=== PATIENT | female | born 1985 | race Caucasian/White ===

== ENCOUNTER 2019-11-01 19:35 | Inpatient (IN) | payer BC ==
[2019-11-01] MEDS ORDERED: BUTORPHANOL TARTRATE 2 MG/ML VIAL IVPB PRN (20:43)
[2019-11-01] MEDS ORDERED: PROMETHAZINE HCL 25 MG/1 ML VIAL IVPUSH ONE (20:43)
[2019-11-01] MEDS ORDERED: ELECTROLYTE-148 SOLN 1,000 ML IV SCH (20:45)
--- NOTE | 2019-11-01 21:14 | HP ---
Past Medical History - Primary Care Physician PCP:: Liset Lazo - Admission Chief Complaint: Active labor. 39 weeks History of Present Illness: 34 yo EdC 10/2019 EGA 39 weeks admitted with labor no rom no bleeding History Source: Patient Limitations to Obtaining History: No Limitations - Past Medical History ...: 2 ...Para: 1 Additional Medical History: Rheumatoid arthirits - Past Surgical History Past Surgical History: Yes: None Hx Myomectomy: No Hx Transabdominal Cerclage: No - Smoking History Have you smoked in the past 12 months: No - Alcohol/Substance Use Hx Alcohol Use: No History of Substance Use: reports: None - Social History Usual Living Arrangement: Yes: With Spouse History of Recent Travel: No Home Medications - Allergies Allergies/Adverse Reactions: Allergies Allergy/AdvReac Type Severity Reaction Status Date / Time No Known Allergies Allergy Verified 11/01/19 22:52 - Home Medications Home Medications: Ambulatory Orders Etanercept [Enbrel] 50 mg SQ WEEKLY 11/01/19 Ibuprofen [Motrin -] 600 mg PO QID #28 tablet 11/02/19 Review of Systems - Review of Systems Constitutional: reports: No Symptoms Eyes: reports: No Symptoms HENT: reports: No Symptoms Neck: reports: No Symptoms Cardiovascular: reports: No Symptoms Respiratory: reports: No Symptoms Gastrointestinal: reports: Abdominal Pain Genitourinary: reports: No Symptoms Breasts: reports: No Symptoms Reported Musculoskeletal: reports: No Symptoms Integumentary: reports: No Symptoms Neurological: reports: No Symptoms Endocrine: reports: No Symptoms Hematology/Lymphatic: reports: No Symptoms Psychiatric: reports: No Symptoms Physical Exam - Maternity Constitutional: Yes: Well Nourished, No Distress Neck: Yes: WNL Cardiovascular: Yes: WNL Lungs: Clear to auscultation Breast(s): Yes: WNL - Abdominal Exam/OB Fundal Height: 39 Number of Fetuses: Single Presentation: Vertex Contractions: Yes Monitor Mode: External Heart Rate Location: RL Category: I - Vaginal Exam/OB Dilatation (cm): 4 Effacement (%): 100 Presentation: Vertex/Position - Physical Exam Extremities: Yes: WNL Edema: No Psychiatric: Yes: WNL, Alert, Oriented Problem List - Problems (1) Labor established Problems reviewed: Yes Code(s): TAI5953 - (2) 39 weeks gestation of Problems reviewed: Yes Code(s): Z3A.39 - 39 WEEKS GESTATION OF Assessment/Plan IUPat 39 week Active labor Cat 1 obesity Plan Admit Stadol
[2019-11-01] MEDS ORDERED: OXYTOCIN 20 UNITS in 0.9% NS 20 UNIT/1,000 ML INFUS.BAG IV ONE (21:41)
[2019-11-01 21:48] LABS: BASO % 0.1 % (0-2.0); EOS % 0.9 % (0-4.5); HEMATOCRIT 30.9 % (32.4-45.2); HEMOGLOBIN 10.1 GM/dL (10.7-15.3); LYMPH % 10.3 % (8-40); MCH 25.1 pg (25.7-33.7); MCHC 32.8 g/dl (32.0-36.0); MEAN CELL VOLUME 76.6 fl (80-96); MEAN PLT VOLUME 9.5 fl (7.5-11.1); MONO % 7.3 % (3.8-10.2); NEUT % 81.4 % (42.8-82.8); PLATELET COUNT 267 K/MM3 (134-434); RBC 4.04 M/mm3 (3.60-5.2); WHITE BLOOD COUNT 10.1 K/mm3 (4.0-10.0)
[2019-11-01 21:56] LABS: INR 0.93 (0.83-1.09)
[2019-11-01 21:58] LABS: ACTIVATED PTT 24.8 SECONDS (25.2-36.5)
[2019-11-01] MEDS ORDERED: PCA PUMP NR ONE (22:03)
[2019-11-01] MEDS ORDERED: FENTANYL/BUPIVACAINE/NS/PF - PCEA - 50 ML DISP.SYRIN EP ONE (22:03)
[2019-11-01] MEDS ORDERED: BUPIVACAINE HCL/PF 0.25% (2.5MG/ML) 10 ML VIAL ONE (22:05)
[2019-11-01 22:14] LABS: BLOOD UREA NITROGEN 7.8 mg/dL (7-18); CALCIUM 8.6 mg/dL (8.5-10.1); CREATININE 0.7 mg/dL (0.55-1.3); POTASSIUM 4.1 mmol/L (3.5-5.1)
[2019-11-01] MEDS ORDERED: NALOXONE HCL 0.4 MG/ML VIAL IVPUSH PRN (23:39)
[2019-11-01] MEDS ORDERED: FENTANYL/BUPIVACAINE/NS/PF - PCEA - 50 ML DISP.SYRIN EP SCH (23:45)
[2019-11-02 00:24] VITALS: BMI 31.1
[2019-11-02] MEDS ORDERED: OXYTOCIN 30 UNITS in 0.9% NS 30 UNIT/500 ML INFUS.BAG IVPB ONE (01:26)
[2019-11-02] MEDS ORDERED: METHYLERGONOVINE MALEATE 0.2 MG/1 ML AMP IM PRN (02:41)
[2019-11-02] MEDS ORDERED: WITCH HAZEL 50% (TUCKS) 40 PAD/JAR PAD TP PRN (02:41)
[2019-11-02] MEDS ORDERED: BENZOCAINE 20% 57 GM BOTTLE TP PRN (02:41)
[2019-11-02] MEDS ORDERED: BENZOCAINE 28 GM HEMORRHOIDAL OINTMENT PR PRN (02:41)
[2019-11-02] MEDS ORDERED: BISACODYL 10 MG SUPP.RECT PR PRN (02:41)
--- NOTE | 2019-11-02 02:41 | PN ---
Delivery - Delivery Vaginal Delivery: No Problems (Nuchal cord x 2 thick meconium), Spontaneous Type of Anesthesia: Epidural Episiotomy/Laceration: 1st degree EBL (cc): 350 Delivery, Single - Stages of Labor Placenta: Yes: Spontaneous - Condition of Infant Gender: Male Position: OA - [place] Feeding Plan Initial Plan: Exclusive throughout hospitalization
[2019-11-02] MEDS ORDERED: OXYTOCIN 20 UNITS in 0.9% NS 20 UNIT/1,000 ML INFUS.BAG IV SCH (02:45)
[2019-11-02] MEDS ORDERED: oxyCODONE HCL 5 MG TABLET ONE (02:52)
[2019-11-02] MEDS ORDERED: oxyCODONE HCL 5 MG TABLET PO ONE (03:07)
[2019-11-02] MEDS ORDERED: ACETAMINOPHEN 325 MG TABLET (FP) PO ONE (03:07)
[2019-11-02] MEDS ORDERED: OXYTOCIN 20 UNITS in 0.9% NS 20 UNIT/1,000 ML INFUS.BAG IV ONE (03:36)
[2019-11-02 03:56] LABS: CORD BASE EXCESS -6.8 mmol/L (0-2); CORD HCO3 18.5 mmHg (20-29); CORD PCO2 36.9 mmHg (30-78); CORD pH 7.319 (7.14-7.44)
[2019-11-02 03:59] LABS: CORD HCO3 18.8 mmHg (20-29); CORD PCO2 38.9 mmHg (30-78); CORD pH 7.303 (7.14-7.44)
[2019-11-02] MEDS: IBUPROFEN 600 MG TABLET (FP) PO PRN ×3 (05:20→21:10)
[2019-11-02] MEDS: ACETAMINOPHEN 325 MG TABLET (FP) PO PRN ×3 (05:21→21:09)
--- NOTE | 2019-11-02 08:42 | PN ---
Post Note - Post Date of Delivery: 11/02/19 Post Day: 1 Vital Signs: Vital Signs - 24 hr 11/01/19 11/01/19 11/01/19 20:40 22:00 22:15 Temperature 97.6 F 97.6 F Pulse Rate 68 77 68 Respiratory 20 20 20 Rate Blood Pressure 118/83 126/72 117/65 O2 Sat by Pulse 100 Oximetry (%) 11/01/19 11/01/19 11/01/19 22:20 22:25 22:30 Temperature Pulse Rate 68 62 123 H Respiratory 20 20 20 Rate Blood Pressure 121/73 122/71 109/91 O2 Sat by Pulse 100 100 99 Oximetry (%) 11/01/19 11/01/19 11/01/19 22:45 23:00 23:15 Temperature 97.8 F Pulse Rate 71 73 71 Respiratory 20 20 20 Rate Blood Pressure 114/65 116/80 101/87 O2 Sat by Pulse 100 100 100 Oximetry (%) 11/01/19 11/02/19 11/02/19 23:30 00:00 01:00 Temperature 97.9 F 98.0 F Pulse Rate 88 Respiratory 20 Rate Blood Pressure 138/78 O2 Sat by Pulse 100 Oximetry (%) 11/02/19 11/02/19 11/02/19 02:45 03:00 03:15 Temperature Pulse Rate 105 H 84 79 Respiratory 20 20 20 Rate Blood Pressure 127/72 122/78 109/66 O2 Sat by Pulse Oximetry (%) 11/02/19 11/02/19 03:30 05:46 Temperature 98.1 F 99.1 F Pulse Rate 77 81 Respiratory 20 18 Rate Blood Pressure 116/60 119/71 O2 Sat by Pulse Oximetry (%) Labs: Laboratory Results - last 24 hr 11/01/19 11/01/19 11/01/19 18:15 18:15 18:15 WBC 10.1 H RBC 4.04 Hgb 10.1 L Hct 30.9 L MCV 76.6 L MCH 25.1 L MCHC 32.8 RDW 20.0 H Plt Count 267 MPV 9.5 Absolute Neuts (auto) 8.2 H Neutrophils % 81.4 Lymphocytes % 10.3 Monocytes % 7.3 Eosinophils % 0.9 Basophils % 0.1 Nucleated RBC % 0 PT with INR 11.00 INR 0.93 PTT (Actin FS) 24.8 L Cord Blood pH Cord Blood PCO2 Cord Blood PO2 Cord Blood HCO3 Cord Base Excess Sodium 137 Potassium 4.1 Chloride 107 Carbon Dioxide 22 Anion Gap 9 BUN 7.8 Creatinine 0.7 Est GFR (CKD-EPI)AfAm 132.87 Est GFR (CKD-EPI)NonAf 114.64 Random Glucose 73 L Calcium 8.6 HIV Ag/Ab Combo Qual Blood Type Antibody Screen 11/01/19 11/01/19 11/02/19 18:15 18:15 02:29 WBC RBC Hgb Hct MCV MCH MCHC RDW Plt Count MPV Absolute Neuts (auto) Neutrophils % Lymphocytes % Monocytes % Eosinophils % Basophils % Nucleated RBC % PT with INR INR PTT (Actin FS) Cord Blood pH 7.319 Cord Blood PCO2 36.9 Cord Blood PO2 30.4 Cord Blood HCO3 18.5 L Cord Base Excess -6.800 L Sodium Potassium Chloride Carbon Dioxide Anion Gap BUN Creatinine Est GFR (CKD-EPI)AfAm Est GFR (CKD-EPI)NonAf Random Glucose Calcium HIV Ag/Ab Combo Qual Negative Blood Type B POSITIVE Antibody Screen Negative 11/02/19 02:29 WBC RBC Hgb Hct MCV MCH MCHC RDW Plt Count MPV Absolute Neuts (auto) Neutrophils % Lymphocytes % Monocytes % Eosinophils % Basophils % Nucleated RBC % PT with INR INR PTT (Actin FS) Cord Blood pH 7.303 Cord Blood PCO2 38.9 Cord Blood PO2 27.4 Cord Blood HCO3 18.8 L Cord Base Excess -7.000 L Sodium Potassium Chloride Carbon Dioxide Anion Gap BUN Creatinine Est GFR (CKD-EPI)AfAm Est GFR (CKD-EPI)NonAf Random Glucose Calcium HIV Ag/Ab Combo Qual Blood Type Antibody Screen - Subjective Subjective: No Complaints - Objective Afebrile: Yes Breast: Not engorged Abdomen: Soft, Non-tender Uterus: Fundus firm Vagina: Scant lochia Extremities: Non-tender - Assessment/Plan (1) Labor established Assessment: S/P Normal Plan: Routine Care
[2019-11-03 08:12] LABS: BASO % 0.2 % (0-2.0); EOS % 1.5 % (0-4.5); HEMATOCRIT 27.9 % (32.4-45.2); LYMPH % 20.4 % (8-40); MCH 24.9 pg (25.7-33.7); MCHC 32.3 g/dl (32.0-36.0); MEAN PLT VOLUME 9.4 fl (7.5-11.1); MONO % 6.3 % (3.8-10.2); NEUT % 71.6 % (42.8-82.8); PLATELET COUNT 224 K/MM3 (134-434); RBC 3.62 M/mm3 (3.60-5.2); RDW 20.1 % (11.6-15.6); WHITE BLOOD COUNT 8.5 K/mm3 (4.0-10.0)
[2019-11-03 09:50] VITALS: BP 118/76; PULSE 83; TEMP 97.9
--- NOTE | 2019-11-03 09:50 | DS ---
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 Signs: Vital Signs Temperature 98.4 F 11/02/19 22:00 Pulse Rate 84 11/02/19 22:00 Respiratory Rate 18 11/02/19 22:00 Blood Pressure 112/63 11/02/19 22:00 O2 Sat by Pulse Oximetry (%) 98 11/02/19 17:19 Constitutional: Yes: Well Nourished, No Distress Respiratory: Yes: WNL Gastrointestinal: Yes: WNL, Normal Bowel Sounds, Soft ....Post : Yes: Uterus firm, Uterus non-tender Extremities: Yes: WNL Edema: No Neurological: Yes: WNL, Alert, Oriented Labs: CBC, BMP 11/03/19 06:51 11/01/19 18:15 Delivery - Delivery Vaginal Delivery: No Problems (Nuchal cord x 2 thick meconium), Spontaneous Type of Anesthesia: Epidural Episiotomy/Laceration: 1st degree EBL (cc): 350 Delivery, Single - Stages of Labor Date 1st Stage Initiatied: 11/01/19 Time 1st Stage Initiated: 18:00 Date 2nd Stage Initiated: 11/01/19 Time 2nd Stage Initiated: 22:00 Date of Delivery: 11/02/19 Time of Delivery: 02:29 Time Placenta Delivered: 02:32 Placenta: Yes: Spontaneous - Condition of Group Work 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 Liset Lazo Corrosion Engineer discharge instructions Physical activity Resume your normal everyday activity as tolerated no heavy lifting or exercise until seen by your surgeon. You may walk unlimited annie of and climb stairs. You may resume driving the car when you feel safe and comfortable behind the wheel. No sexual activity as instructed by Dr. Lazo. Wound care If you have a bandage, leave it on, and keep dry for 48-72 hours. After that time discard the outer bandage. If they are tapes on the skin under the out of bandage leave them in place. They will peel off in the next 7 to 10 days. Do Not Peel them off. You may shower the day after surgery. If there are tapes present on the skin, you may shower over them. Diet There are no dietary restrictions. Eat healthy, high-fiber foods. Drink 6 to 8 glasses of liquid each day. This will assist in keeping your bowels are regular. Pain management You may take Tylenol or acetaminophen or Ibuprofen (for example, Motrin, Advil etc.) from my pain prescription medication is ordered should be taken as prescribed for moderate to severe pain. Call Dr. Lazo for any of the following: Severe pain not relieved by medication Fever of 101 or higher Excessive bleeding or drainage on dressing Inability to urinate Call the office at [phone] for an appointment in seven days. Referrals: Liset Lazo MD [Staff Physician] - Disposition: HOME - Home Medications Comprehensive Discharge Medication List: Ambulatory Orders Etanercept [Enbrel] 50 mg SQ WEEKLY 11/01/19 Ibuprofen [Motrin -] 600 mg PO QID #28 tablet 11/02/19
== END 2019-11-03 14:00 | disposition home or self-care (01) | DRG 807 ==
LOC: JDEL 19:35 → JLDR 20:40 → J3W 11-02 04:57
PROVIDERS: ADMIT Obstetrics & Gynecology; ATTEND Obstetrics & Gynecology
PROC: 10E0XZZ Delivery of Products of Conception, External Approach (ICD-10-PCS; principal; 2019-11-02)
DX: O70.0 First degree perineal laceration during delivery (principal); Z37.0 Single live birth; O77.0 Labor and delivery complicated by meconium in amniotic fluid; O69.81X0 Labor and delivery complicated by cord around neck, without compression, not applicable or unspecified; Z3A.39 39 weeks gestation of pregnancy; Z87.39 Personal history of other diseases of the musculoskeletal system and connective tissue; M06.9 Rheumatoid arthritis, unspecified
CPT/HCPCS: 36415; 36600; 59409; 80048; 82803; 85025; 85610; 85730; 86762; 86850; 86900; 86901; 87340; 87389; U0003